=== PATIENT | male | born 1945 | race Caucasian/White ===

== ENCOUNTER 2024-04-15 11:14 | Emergency (ER) | payer MEDICARE, BC ==
[~2024-04-15] VITALS: Ht 165.1 cm; Wt 105.1 kg
[2024-04-15 11:28] VITALS: TEMP 97.7
[2024-04-15 11:40] LABS: BASOPHILS % (AUTO) 0.4 % (0-1); EOSINOPHILS # (AUTO) 0.2 X10'3 (0-0.9); EOSINOPHILS % (AUTO) 2.9 % (0-6); HEMATOCRIT 43.6 % (42.0-52.0); HEMOGLOBIN 14.5 g/dl (14.0-17.9); LYMPHOCYTES # (AUTO) 1.5 X10'3 (1.1-4.8); MEAN CORPUSCULAR HEMOGLOBIN 31.3 PG (27.0-31.0); MEAN CORPUSCULAR HGB CONC 33.3 g/dL (33.0-36.5); MEAN CORPUSCULAR VOLUME 93.9 FL (78-98); MEAN PLATELET VOLUME 9.5 FL (7.4-10.4); MONOCYTES # (AUTO) 0.6 X10'3 (0-0.9); MONOCYTES % (AUTO) 8.7 % (2-12); NEUTROPHILS # (AUTO) 4.6 X10'3 (1.8-7.7); PLATELET COUNT 152 X10'3 (140-440); RED BLOOD COUNT 4.65 X10'6 (4.70-6.10); RED CELL DISTRIBUTION WIDTH 13.8 % (11.5-14.5)
[2024-04-15 11:58] LABS: ALANINE AMINOTRANSFERASE 39 U/L (12-78); ALBUMIN 3.7 G/DL (3.4-5.0); ALBUMIN/GLOBULIN RATIO 1.2 (1.1-1.5); ALKALINE PHOSPHATASE 62 IU/L (46-116); ANION GAP 4 (8-16); ASPARTATE AMINO TRANSFERASE 19 U/L (10-37); BILIRUBIN,TOTAL 0.6 MG/DL (0.1-1.0); BLOOD UREA NITROGEN 25 MG/DL (7-18); BUN/CREATININE RATIO 19.8 (10.0-20.0); CALCIUM 9.3 MG/DL (8.5-10.1); CHLORIDE 103 MMOL/L (99-107); CREATININE 1.26 MG/DL (0.60-1.10); GLUCOSE 180 MG/DL (70-104); POTASSIUM 4.3 MMOL/L (3.5-5.1); SODIUM 137 MMOL/L (135-145); TOTAL CARBON DIOXIDE 30.1 MMOL/L (24-32); TOTAL PROTEIN 6.9 G/DL (6.4-8.2); eCRCL 43 ML/MIN; eGFR 55 ML/MIN
[2024-04-15 12:04] LABS: PRO BRAIN NATRIURETIC PEPTIDE 56 PG/ML (0-450)
[2024-04-15 12:07] VITALS: BP 146/83; PULSE 68; RESP 17; O2SAT 96
[2024-04-15] MEDS ORDERED: ALBU18HF2 INH (12:23)
== END 2024-04-15 15:42 | disposition home or self-care (01) ==
LOC: ER 11:15
DX: R06.09 Other forms of dyspnea (principal); M79.601 Pain in right arm; G47.39 Other sleep apnea
CPT/HCPCS: 36415; 71045; 80053; 82948; 83880; 84484; 85025; 93005; 99285

== ENCOUNTER 2024-05-04 05:30 | Day surgery (SDC) | payer MEDICARE, BC ==
[2024-04-30 13:15] LABS: BASOPHILS % (AUTO) 0.3 % (0-1); EOSINOPHILS # (AUTO) 0.2 X10'3 (0-0.9); EOSINOPHILS % (AUTO) 2.5 % (0-6); HEMATOCRIT 43.6 % (42.0-52.0); HEMOGLOBIN 14.7 g/dl (14.0-17.9); LYMPHOCYTES # (AUTO) 1.8 X10'3 (1.1-4.8); LYMPHOCYTES % (AUTO) 23.1 % (21-51); MEAN CORPUSCULAR HEMOGLOBIN 31.4 PG (27.0-31.0); MEAN CORPUSCULAR HGB CONC 33.6 g/dL (33.0-36.5); MEAN CORPUSCULAR VOLUME 93.4 FL (78-98); MEAN PLATELET VOLUME 9.7 FL (7.4-10.4); MONOCYTES # (AUTO) 0.6 X10'3 (0-0.9); MONOCYTES % (AUTO) 8.3 % (2-12); NEUTROPHILS # (AUTO) 5.1 X10'3 (1.8-7.7); NEUTROPHILS % (AUTO) 65.8 % (42-75); PLATELET COUNT 158 X10'3 (140-440); RED BLOOD COUNT 4.67 X10'6 (4.70-6.10); RED CELL DISTRIBUTION WIDTH 13.7 % (11.5-14.5); WHITE BLOOD COUNT 7.8 X10'3 (4.5-11.0)
[2024-04-30 13:27] LABS: APTT 25 SECONDS (22-32); PROTHROMBIN TIME 10.3 SECONDS (9.0-12.0)
[2024-04-30 13:31] LABS: ALBUMIN 3.6 G/DL (3.4-5.0); ANION GAP 9 (8-16); BLOOD UREA NITROGEN 24 MG/DL (7-18); BUN/CREATININE RATIO 18.6 (10.0-20.0); CALCIUM 9.5 MG/DL (8.5-10.1); CHLORIDE 103 MMOL/L (99-107); CHOL/HDL RATIO 4.3 (0.00-4.99); CHOLESTEROL 213 MG/DL (0-200); CREATININE 1.29 MG/DL (0.60-1.10); GLUCOSE 141 MG/DL (70-104); HDL CHOLESTEROL 49 MG/DL (35-60); LDL CHOLESTEROL 99 MG/DL (50-100); POTASSIUM 4.8 MMOL/L (3.5-5.1); SODIUM 142 MMOL/L (135-145); TOTAL CARBON DIOXIDE 29.8 MMOL/L (24-32); TRIGLYCERIDES 417 MG/DL (20-135); eGFR 54 ML/MIN
[~2024-05-04] VITALS: Ht 170.2 cm; Wt 104.3 kg
[2024-05-04] VITALS (10 sets, daily range): BP systolic 121–164; BP diastolic 49–82; PULSE 59–73; RESP 13–20; TEMP 97.8; O2SAT 92–98
[~2024-05-04 05:30] MED LIST: ALBU18HF2 INH
[2024-05-04] MEDS ORDERED: LIDOcaine 1% 30ml preserv. free vial ONE (05:55)
[2024-05-04] MEDS ORDERED: diphenhydrAMINE 25mg capsule PO PRN (05:55)
[2024-05-04] MEDS ORDERED: iohexol 350MG/ML 100ml bottle IV ONE (05:55)
[2024-05-04] MEDS ORDERED: verapamil 2.5 mg/ml inj IV ONE (05:55)
[2024-05-04] MEDS ORDERED: normal saline 1,000 ML IV SCH (05:55)
[2024-05-04] MEDS ORDERED: midazolam 1 mg/ML 2ml injection ONE (05:55)
[2024-05-04] MEDS ORDERED: LORazepam 0.5 MG tablet PO PRN (05:55)
[2024-05-04] MEDS ORDERED: fentaNYL/PF 50MCG/1 ML 2ML syringe ONE (05:55)
[2024-05-04] MEDS ORDERED: heparin 1,000unit/ml 10ml vial 10 ML ONE (05:55)
[2024-05-04] MEDS ORDERED: ATOR20TA66 PO (05:59)
[2024-05-04] MEDS ORDERED: MULT-1085 PO (05:59)
[2024-05-04] MEDS ORDERED: METO-384 PO (05:59)
[2024-05-04] MEDS ORDERED: FLO0.4C PO (05:59)
[2024-05-04] MEDS ORDERED: FERR-119 PO (05:59)
[2024-05-04] MEDS ORDERED: CHOL400T PO (05:59)
[2024-05-04] MEDS ORDERED: MECO10005 PO (05:59)
[2024-05-04] MEDS ORDERED: ASPI-611 PO (05:59)
[2024-05-04] MEDS ORDERED: nitroGLYCERIN 500mcg/5mL D5W 5 ML IV ONE (05:59)
[2024-05-04] MEDS ORDERED: ALBU18HF2 INH (05:59)
[2024-05-04] MEDS ORDERED: METF-1203 PO (05:59)
[2024-05-04] MEDS ORDERED: HYDROcodone/acetaminophen 10/325mg tab PO PRN (07:20)
[2024-05-04] MEDS ORDERED: ondansetron/PF 4mg/2ml inj IV PRN (07:20)
[2024-05-04] MEDS ORDERED: HYDROcodone/acetaminophen 5mg/325mg tablet PO PRN (07:20)
[2024-05-04] MEDS ORDERED: proCHLORperazine 10 MG/2 ml inj IV PRN (07:20)
[2024-05-04] MEDS ORDERED: nitroGLYCERIN 0.4mg SUBLingual tab SL PRN (07:20)
== END 2024-05-04 10:00 | disposition home or self-care (01) ==
LOC: SSTAY O 05:30
PROVIDERS: ATTEND Student in an Organized Health Care Education/Training Program
DX: R06.09 Other forms of dyspnea (principal); I42.9 Cardiomyopathy, unspecified; I25.10 Atherosclerotic heart disease of native coronary artery without angina pectoris; I10 Essential (primary) hypertension; E11.9 Type 2 diabetes mellitus without complications; E78.00 Pure hypercholesterolemia, unspecified; G47.33 Obstructive sleep apnea (adult) (pediatric); Z79.82 Long term (current) use of aspirin; Z79.84 Long term (current) use of oral hypoglycemic drugs; Z79.899 Other long term (current) drug therapy
CPT/HCPCS: 36415; 80048; 80061; 82948; 85025; 85610; 85730; 93005; 93458; 99152; A6258; A6402; C1769; C1894; J1644; J2001; J2250; J3010; J3490; J7030; Q9967; Z7610